=== PATIENT | male | born 1965 | race African-American/Black ===

== ENCOUNTER 2019-08-14 13:46 | Emergency (ER) | payer SELFPAY ==
[~2019-08-14] VITALS: Ht 180.3 cm; Wt 86.0 kg
[2019-08-14] MEDS ORDERED: SODIUM CHLORIDE 0.9% 1,000 ML IV ONE (14:17)
[2019-08-14] MEDS ORDERED: FAMOTIDINE 20MG/2ML VIAL IV STA (14:17)
[2019-08-14] MEDS ORDERED: ONDANSETRON HCL 4MG/2ML INJ IV STA (14:17)
[2019-08-14] MEDS ORDERED: MORPHINE SULFATE 4 MG/ML CPJ (NOT FOR IM USE) IV ONE (15:00)
[2019-08-14 15:06] LABS: BASOPHILS % 0.4 % (0.0-2.0); EOSINOPHILS % 0.1 % (0.0-5.0); HEMATOCRIT. 47.5 % (42.0-52.0); HEMOGLOBIN. 16.3 g/dL (14.0-18.0); LYMPHOCYTES % 8.2 % (20.0-50.0); MEAN CORPUSCULAR HEMOGLOBIN 29.8 pg (28.0-32.0); MEAN PLATELET VOLUME 8.4 fl (7.4-10.4); MONOCYTES % 1.9 % (2.0-8.0); NEUTROPHILS % 89.4 % (40.0-76.0); PLATELET 195 x1000/uL (130-400); RED BLOOD CELL COUNT 5.46 mill/uL (4.7-6.1); RED CELL DISTRIBUTION WIDTH 13.6 % (11.6-14.6)
[2019-08-14 15:07] LABS: INR 1.1; PROTHROMBIN TIME 10.9 sec (9.6-11.0)
[2019-08-14 15:08] LABS: CHLORIDE 106 mEq/L (98-107)
[2019-08-14 15:12] LABS: ETHANOL BLOOD < 10 mg/dL
[2019-08-14 15:54] LABS: CLARITY URINE CLEAR (CLEAR); COLOR URINE YELLOW (YELLOW); KETONES URINE 2+ (NEGATIVE); LEUKOCYTE ESTERASE URINE NEGATIVE (NEGATIVE); NITRITE URINE NEGATIVE (NEGATIVE); OCCULT BLOOD URINE TRACE (NEGATIVE); PH URINE 6.5 (4.5-8.0); PROTEIN URINE NEGATIVE (NEGATIVE); SPECIFIC GRAVITY URINE 1.024 (1.005-1.030); UROBILINOGEN URINE 0.2 E.U./dL (0.2-1.0)
[2019-08-14 16:06] LABS: *AMPHETAMINES SCREEN URINE NEGATIVE (NEGATIVE); CANNABINOID URINE SCREEN PRESUMTIVE POSITIVE (NEGATIVE); PHENCYCLIDINE URINE SCREEN NEGATIVE (NEGATIVE)
[2019-08-14 16:07] LABS: *BARBITURATES SCREEN URINE NEGATIVE (NEGATIVE); *BENZODIAZEPINES SCREEN URINE NEGATIVE (NEGATIVE); *COCAINE SCREEN URINE NEGATIVE (NEGATIVE); METHADONE URINE SCREEN NEGATIVE (NEGATIVE); OPIATES URINE SCREEN NEGATIVE (NEGATIVE)
[2019-08-14] MEDS ORDERED: ONDANSETRON HCL 4MG/2ML INJ IV ONE (16:45)
[2019-08-14 17:29] VITALS: BP 128/76
== END 2019-08-14 17:31 | disposition home or self-care (01) ==
LOC: ER 13:46
DX: R10.13 Epigastric pain (principal); R73.9 Hyperglycemia, unspecified; R11.10 Vomiting, unspecified; F12.10 Cannabis abuse, uncomplicated; Z98.890 Other specified postprocedural states
CPT/HCPCS: 36415; 80053; 80305; 80320; 81003; 83690; 85025; 85610; 96361; 96374; 96375; 96376; 99283; J2405; J3490; J7030; J2270; G0480